=== PATIENT | male | born 1975 | race Caucasian/White ===

== ENCOUNTER 2016-11-10 07:27 | Emergency (ER) | payer OTHER ==
[2016-11-10 08:13] LABS: MANUAL DIFF NEEDED? NO
[2016-11-10 08:13] LABS: URINE CULTURE NEEDED? NO; URINE MICRO REVIEW NEEDED? NO; URINE SOURCE CLEAN CATCH
[2016-11-10] MEDS ORDERED: ZOFRAN IV ONE (08:17)
[2016-11-10] MEDS ORDERED: NS 1,000 ML IV ONE (08:17)
[2016-11-10 08:19] LABS: BASO% 0.3 % (0.0-0.8); EOS# 0.02 X1000 (0.0-0.7); EOS% 0.3 % (0.0-10.0); HEMATOCRIT 41.7 % (42.0-52.0); HEMOGLOBIN 14.8 g/dL (14.0-18.0); LYMPH# 1.51 X1000 (1.2-3.4); LYMPH% 21.4 % (20.5-51.1); MCH 28.6 PG (27-31); MCHC 35.5 g/dL (33-37); MCV 80.5 FL (81-99); MONO# 0.41 X1000 (0.11-0.59); MONO% 5.8 % (1.7-9.3); MPV 11.5 FL (7.4-10.4); NEUT% 72.2 % (42.2-75.2); PLT 196 X1000 (130-400); RBC 5.18 XMIL (4.7-6.1)
[2016-11-10 08:33] LABS: AGAP 17; ALBUMIN 4.3 g/dL (3.5-5.0); ALKALINE PHOSPHATASE 82 U/L (32-122); AMYLASE 60 U/L (20-200); BUN 9 mg/dL (8-22); CALCIUM 9.5 mg/dL (8.8-10.2); CHLORIDE 96 mmol/L (98-107); COSMO 275; GOT 13 U/L (10-34); GPT 11 U/L (10-44); LIPASE 19 U/L (13-60); POTASSIUM 3.9 mmol/L (3.5-5.1); SODIUM 138 mmol/L (136-145); TCO2 25 mmol/L (25-35); TOTAL BILIRUBIN 0.96 mg/dL (0.20-1.00); TOTAL PROTEIN 7.8 g/dL (6.3-8.3)
[2016-11-10] MEDS ORDERED: ATIVAN IV ONE (08:35)
[2016-11-10 08:44] LABS: BILIRUBIN URINE NEGATIVE (NEGATIVE); BLOOD URINE NEGATIVE (NEGATIVE); COLOR YELLOW; GLUCOSE URINE NEGATIVE (NEGATIVE); LEUKOCYTES URINE NEGATIVE (NEGATIVE); NITRITE URINE NEGATIVE (NEGATIVE); PH URINE 6.5; PROTEIN URINE NEGATIVE (NEGATIVE); SP GRAVITY URINE 1.007; TURBIDITY URINE CLEAR (CLEAR); UROBILINOGEN URINE NORMAL (NORMAL)
[2016-11-10 08:46] LABS: UR EPITHELIAL CELLS <10 /HPF (<10); URINE BACTERIA NEGATIVE /HPF; URINE RBC <10 /HPF (<10); URINE WBC <10 /HPF (<10)
--- NOTE | 2016-11-10 09:06 | PROVIDER DOCUMENTATION ---
HPI-Abdominal Pain/GI Problem - General Chief Complaint: Abdominal Pain Stated Complaint: ABD PAIN,SHAKING,DRY HEAVING Time Seen by Provider: 11/10/16 08:16 Source: patient, family Allergies/Adverse Reactions: Patient Allergies Allergy/AdvReac Type Severity Reaction Status Date / Time No Known Allergies Allergy Verified 11/10/16 08:57 Home Medications: Home Medication List Medication Instructions Recorded Confirmed Last Taken Type No Home Medications 10/20/16 11/10/16 Unknown History - History of Present Illness-ABD Nature of Presenting Problems: Reports to er with cc of abd pain. Reports Seen pcp on Tuesday was given enema and stool softner for constipation and has since then had a BM. Reports possible dehydration. States has a nerve issue for past 4 years now reports has had jerking night sweats and the past 6 months has become worse. Denies SI and HI. Also reports nausea and weakness. Abdominal Pain Onset Location: reports: generalized abdomen Quality of Pain: reports: aching Severity in ED: reports: mild Onset/Duration: reports: 4 days ago Timing: reports: still present Exposure to sick contacts?: No Bruising or Bleeding Gums?: No Similar Symptoms Previously?: Yes Recently seen or treated by another doctor?: Yes Review of Systems - Adult - REVIEW OF SYSTEMS - ADULT Constitutional: reports: night sweats. denies: chills, fever, fatique, weight loss Eyes: reports: no symptoms reported Ears, Nose, Mouth & Throat: denies: ear pain, sinus problem, throat pain Cardiovascular: denies: chest pain, irregular heart rate, orthopnea, syncope Respiratory: denies: cough, shortness of breath, wheezing Gastrointestinal: reports: abdominal pain, nausea. denies: constipation, diarrhea, vomiting Genitourinary: reports: no symptoms reported Musculoskeletal: reports: other (shaking). denies: joint pain, joint swelling, muscle aches Integumentary: reports: no symptoms reported Neurological: reports: no symptoms reported Psychiatric: reports: no symptoms reported Endocrine: reports: no symptoms reported Hematologic/Lymphatic: reports: no symptoms reported Allergic/Immunologic: reports: no symptoms reported All Other Systems: Reviewed and Negative Past History - Adult - PAST MEDICAL HISTORY-ADULT Review of Records: reports: Nursing Assessment Review, Medications Reviewed Major Childhood Illnesses: reports: denies history Cardiovascular: reports: denies history Respiratory: reports: denies history Gastrointestinal: reports: denies history Obstetrical/Gynecological: reports: denies history Genitourinary: reports: denies history Musculoskeletal: reports: denies history Neurological: reports: denies history Endocrine/Immune: reports: denies history Other Conditions: reports: denies history - IMMUNIZATION STATUS Childhood Immunizations: See Nurse Assessment Flu Vaccine: See Nurse Assessment - FAMILY HISTORY Family History: reviewed, not pertinent - SOCIAL HISTORY Smoking: denies Substance Use: none/never Physical Exam-General - PHYSICAL EXAM-ADULT Initial Vital Signs Reviewed: Yes - CONSTITUTIONAL General Appearance: appears well, alert, no apparent distress - EYES Eyes: PERRL/EOMI - HEAD, EARS, NOSE, MOUTH & THROAT HENMT: moist mucous membranes, normal ENT inspection, TMs normal, pharynx normal - NECK Neck: non-tender, full range of motion, supple - RESPIRATORY Respiratory: chest non-tender, lungs clear, normal breath sounds, no pleuratic chest pain, no respiratory distress, no accessory muscle use - CARDIOVASCULAR Cardiovascular: regular rate, rhythm, no edema, no gallop, no JVD, no murmur - GASTROINTESTINAL (ABDOMEN) Abdominal Exam: normal bowel sounds, non tender, soft, no organomegaly, no pulsatile mass - MUSCULOSKELETAL Extremity: normal range of motion, non-tender - SKIN Integumentary: normal color, normal turgor, warm/dry - NEUROLOGIC Neurologic: shooter helper II-XII nml as tested, grossly normal, no motor/sensory deficits - PSYCHIATRIC Psych/Mental Status: normal mood/affect, normal thought content, normal thought process, oriented x 3 Progress - PLAN OF CARE/RESULTS Progress/Plan/Lab Results: Orders Category Date Time Status Saline Loc DIRECTED Care 11/10/16 07:38 Active NPO Diet 11/10/16 07:38 Active AMYLASE [CHEM] Stat Lab 11/10/16 07:40 Completed CBC WITH ELECTRONIC DIFF [HEME] Stat Lab 11/10/16 07:40 Completed COMPREHENSIVE METABOLIC PANEL [CHEM] Stat Lab 11/10/16 07:40 Completed LIPASE [CHEM] Stat Lab 11/10/16 07:40 Completed MAGNESIUM [CHEM] Stat Lab 11/10/16 08:52 Ordered URINALYSIS W/POSS RFLX CULT [URINALYSIS] Stat Lab 11/10/16 07:59 Completed 0.9% Sodium Chloride Inj [Ns] 1,000 ml Med 11/10/16 08:17 Active IV 999 mls/hr Lorazepam [Ativan] Med 11/10/16 08:35 Discontinued 1 mg IV NOW ONE Ondansetron [Zofran] Med 11/10/16 08:17 Discontinued 4 mg IV NOW ONE Vital Signs - 24 hr 11/10/16 07:33 Temperature 97.5 F L Pulse Rate 64 Respiratory 18 Rate Blood Pressure 144/81 O2 Sat by Pulse 99 Oximetry Laboratory Tests 11/10/16 11/10/16 11/10/16 07:40 07:40 07:59 WBC 7.06 RBC 5.18 Hgb 14.8 Hct 41.7 L MCV 80.5 L MCH 28.6 MCHC 35.5 RDW Std Deviation 12.6 Plt Count 196 MPV 11.5 H Immature Gran % (Auto) 0.0 Neut % (Auto) 72.2 Lymph % (Auto) 21.4 [place] % (Auto) 5.8 Eos % (Auto) 0.3 Baso % (Auto) 0.3 Immature Gran # (Auto) 0.00 Neut # (Auto) 5.10 Lymph # (Auto) 1.51 [place] # (Auto) 0.41 Eos # (Auto) 0.02 Baso # (Auto) 0.02 Sodium 138 Potassium 3.9 Chloride 96 L Carbon Dioxide 25 Anion Gap 17 BUN 9 Creatinine 0.8 Estimated GFR/1.73 m2 > 60 BUN/Creatinine Ratio 11 Glucose 104 Calculated Osmolality 275 Calcium 9.5 Total Bilirubin 0.96 AST 13 ALT 11 Alkaline Phosphatase 82 Total Protein 7.8 Albumin 4.3 Globulin 3.5 Albumin/Globulin Ratio 1.2 Amylase 60 Lipase 19 Urine Source CLEAN CATCH Urine Color YELLOW Urine Turbidity CLEAR Urine pH 6.5 Ur Specific [place] 1.007 Urine Protein NEGATIVE Ur Glucose (Stick) NEGATIVE Ur Ketones (Stick) NEGATIVE Urine Blood NEGATIVE Urine Nitrite NEGATIVE Urine Bilirubin NEGATIVE Urobilinogen Dipstick NORMAL Urine Leukocytes NEGATIVE Urine WBC (Auto) <10 Urine RBC (Auto) <10 U Epithel Cells (Auto) <10 Urine Bacteria (Auto) NEGATIVE - XRAY 1 XRAY: Bilateral XRAY Study: Chest, Abdomen Impression: Normal XRAY Interpretation: nad Departure - Departure Time of Disposition Order: 10:06 DIAGNOSIS: Anxiety, Abdominal discomfort Disposition: HOME 01 Certified Medical Emergency: Emergent Condition: Stable Additional Instructions: Follow up with pcp if symptoms continue ED Follow Up Instructions: You have been treated by a care provider in the Emergency Department. These instructions are being provided to you so you can have an understanding of how to care for yourself upon discharge. Upon discharge from the Emergency Department, you are responsible for making arrangements for follow-up care by a physician of your choice. Take all prescribed medications as directed. Return to the Emergency Department immediately for any new or worsening symptoms. You may call the Physician Referral phone number at [phone] to obtain a list of Physicians who are taking new patients. Attestation - Scribe Verification/Attestation Scribe:: Ryan Archer Acting as Scribe for:: Alexandre Martinez Scribe documention review:: This chart was documented by a scribe and accurately reflects the service the provider performed and the decisions made by the provider. Physician Attestation - Physician Attestation I, the provider, attest to the following statement:: Alexandre Martinez Physician documentation Attestation:: This documentation recorded by the scribe accurately reflects the service I personally performed and the decisions made by me.
--- NOTE | 2016-11-10 10:18 | Diag Imaging Result Document ---
PROCEDURE NAME: FLAT/UPRIGHT ABD/1 VIEW CHEST - 11/10/2016 PLAIN RADIOGRAPH OF THE CHEST AND ABDOMEN, 3 VIEWS: COMPARISON: Abdominal radiograph dated 12/21/2015. FINDINGS: There are unremarkable colonic gas and stool patterns. There is no evidence of bowel obstruction. There is no discrete organomegaly. There is no evidence of large volume free abdominal gas. The lungs are grossly clear. The cardiomediastinal silhouette and upper airway are grossly unremarkable. IMPRESSION: No evidence of acute abdominal or chest pathology identified.
[2016-11-10 11:05] VITALS: BP 110/69
[2016-11-10 13:18] LABS: UR AMPHETAMINES QUAL NONE DETECTED (NONE DETECT); UR BARBITUATES QUAL NONE DETECTED (NONE DETECT); UR BENZODIAZEPIN QUAL NONE DETECTED (NONE DETECT); UR CANNABINOIDS QUAL NONE DETECTED (NONE DETECT); UR COCAINE QUAL NONE DETECTED (NONE DETECT); UR METHADONE QUAL NONE DETECTED (NONE DETECT); UR OPIATES QUAL NONE DETECTED (NONE DETECT); UR OXYCODONE QUAL NONE DETECTED (NONE DETECT); UR PCP QUAL NONE DETECTED (NONE DETECT)
== END 2016-11-10 11:10 | disposition home or self-care (01) ==
LOC: ED 07:27
DX: R10.84 Generalized abdominal pain (principal); F41.9 Anxiety disorder, unspecified; R61 Generalized hyperhidrosis; R11.0 Nausea; R53.1 Weakness; G25.89 Other specified extrapyramidal and movement disorders
CPT/HCPCS: 74022; 80053; 81001; 82150; 83690; 83735; 85025; G0480; J2060; J2405; J7030; 80324; 80345; 80346; 80349; 80353; 80358; 80361; 80365; 83992